=== PATIENT | female | born 1980 | race Caucasian/White ===

== ENCOUNTER 2021-09-24 08:54 | Outpatient (CLI) | payer OTHER | END 2021-09-24 09:12 | disposition home or self-care (01) | LOC: SONOGRAMA 08:54 | DX: N84.0 Polyp of corpus uteri (principal) ==

== ENCOUNTER 2024-11-25 09:00 | Day surgery (SDC) | payer OTHER ==
[2024-11-17 10:11] LABS: BASO % 1.2 % (0.1-1.2); EOS # 0.15 (0.04-0.54); EOS % 1.8 % (0.7-7.0); LYMPH # 2.55 (1.18-3.74); LYMPH % 31.0 % (19.3-53.1); MEAN PLATELET VOLUME 11.30 fl (9.4-12.4); MONO # 0.57 (0.24-0.82); MONO % 6.9 % (4.7-12.5); NEUT # 4.85 (1.56-6.13); NEUT % 59.0 % (34.0-71.1); RED CELL DISTRIBUTION WIDTH 11.9 % (11.6-14.4)
[2024-11-17 10:17] LABS: URINE APPEARANCE Clear; URINE BILIRRUBIN Negative (NEGATIVE); URINE BLOOD Negative; URINE COLOR Yellow; URINE GLUCOSE Negative (NEGATIVE); URINE KETONE Negative (NEGATIVE); URINE LEUKOCYTE Moderate; URINE NITRATE Negative; URINE PROTEIN Negative (NEGATIVE); URINE UROBILINOGEN 0.2 E.U./dl
[2024-11-17 10:20] LABS: URINE BACTERIA 639.5 uL (0.0-1933); URINE EPITHELIAL CELLS 17.9 uL (0.0-38.8); URINE RBC 10.9 uL (0.0-20.8); URINE WBC 24.3 uL (0.0-23.2)
[2024-11-17 10:23] LABS: URINE CAST 0.14 uL (0.0-1.40)
[2024-11-17 10:25] VITALS: BP 117/76
[2024-11-17 10:33] LABS: INR 1.03
[2024-11-17 11:08] LABS: BUN CREA RATIO 15.0 (7.0-25.0); CREATININE SERUM 0.55 mg/dL (0.55-1.02); GFR 118.99; GLUCOSE FASTING 78.0 mg/dL (65-100); OSMOLALITY SERUM 278.0 MOSM/KG (275-295)
[~2024-11-25] VITALS: Ht 165.1 cm; Wt 57.2 kg
[~2024-11-25 09:00] MED LIST: PROZAC10 MG; TRAZODONE HCL50 MG
[2024-11-25] MEDS ORDERED: CEFAZOLIN SODIUM 1,000 MG VIAL ONE (10:06)
[2024-11-25] MEDS ORDERED: LIDOCAINE HCL 1%/EPINEPHRINE 20ML VIAL IJ ONE (11:14)
[2024-11-25] MEDS ORDERED: BUPIVACAINE HCL/MPF 0.5% 30ML VIAL ONE (11:14)
[2024-11-25] MEDS ORDERED: LIDOCAINE HCL 1% 20 ML VIAL IJ ONE (11:14)
[2024-11-25] MEDS ORDERED: TYLENOL ARTHRI650 MG PO (12:47)
== END 2024-11-25 15:25 | disposition home or self-care (01) ==
LOC: CIR.AMB 09:00
PROVIDERS: ATTEND Surgery
DX: D17.1 Benign lipomatous neoplasm of skin and subcutaneous tissue of trunk (principal); D49.2 Neoplasm of unspecified behavior of bone, soft tissue, and skin